=== PATIENT | female | born 1945 ===

== ENCOUNTER 2017-02-24 08:01 | Day surgery (SDC) | payer MEDICAID ==
[2017-02-24] MEDS ORDERED: Propofol 10 mg/ml Inj (20 ML) ONE (09:14)
[2017-02-24] MEDS ORDERED: Sodium Chloride 0.9% 1,000 ML IV SCH (09:45)
[2017-02-24 10:12] VITALS: PULSE 68
[2017-02-24 10:51] VITALS: BP 134/91; RESP 16; TEMP 97.8; O2SAT 97
== END 2017-02-24 11:06 | disposition home or self-care (01) ==
LOC: ENDO 08:01
PROVIDERS: ATTEND Internal Medicine
DX: D17.5 Benign lipomatous neoplasm of intra-abdominal organs (principal); K64.4 Residual hemorrhoidal skin tags; K64.8 Other hemorrhoids; K62.5 Hemorrhage of anus and rectum; K59.04 Chronic idiopathic constipation
CPT/HCPCS: 45378; J2001; J2704; J7040 ×2

== ENCOUNTER 2017-12-22 06:45 | Day surgery (SDC) | payer MEDICAID ==
[2017-12-18 10:31] VITALS: BMI 31.1
--- NOTE | 2017-12-20 00:51 | HP ---
REASON FOR ADMISSION: Left heart cath, possible angioplasty, abnormal stress test. BRIEF CLINICAL HISTORY: This is a 72-year-old female with a past medical history significant for hypertension, hypothyroidism, both knee arthritis, complaining of chest pain, dyspnea on exertion, who underwent a stress test that was abnormal; so, the patient is scheduled for elective cardiac cath, possible angioplasty. PAST MEDICAL HISTORY: Significant for hypertension, hyperlipidemia, arthritis of both knee. SOCIAL HISTORY: Denies any history of alcohol abuse. CURRENT MEDICATIONS: Patient is taking at home, hydrochlorothiazide 12.5 mg daily, sertraline, Zoloft 50 mg daily, Voltaren 100 mg p.o. b.i.d., cyanocobalamin B12 1000 mcg daily, aspirin 81 mg daily, metoprolol succinate 25 mg daily, levothyroxine 50 mcg daily, Celebrex, calcium, atorvastatin 10 mg daily, multivitamin 1 tablet daily, Odell-3 500 p.o. daily, oxybutynin 5 mg daily, phenazopyridine 100 mg p.o. t.i.d. ALLERGIES: NO KNOWN DRUG ALLERGIES. PREVIOUS CARDIAC WORKUP: As follows: The patient had echocardiography on 11/17/2017 that showed ejection fraction of 65%, mild to moderate mitral regurgitation, trace tricuspid regurgitation, RV systolic pressure of 16. The patient had a stress test that is IV Lexiscan and also myocardial perfusion that showed partially reversible distal anterior apical defect suspicious for ischemia. Ejection fraction reported 69%, dated 11/28/2017. REVIEW OF SYSTEMS: As per HPI. PHYSICAL EXAMINATION: As follows: VITAL SIGNS: Height of the patient is 5 feet 2 inches, weight of the patient is 170 pounds, body mass index 31.1 kg/m2. Rest of the examination as follows: Heart rate 70, blood pressure 130/70. HEENT: PERRLA intact. NECK: Supple. No carotid bruit or thyromegaly. CHEST: Clear to auscultation. HEART: S1 and S2 regular. ABDOMEN: Soft. EXTREMITIES: Clubbing and cyanosis negative. IMPRESSION: Morbidly obese female with hypertension, hyperlipidemia, hypothyroidism, bilateral knee arthritis, complaining of dyspnea on exertion, chest pain on exertion. Abnormal stress test, suspicious of distal anterior and apical ischemia, ejection fraction 69%, dated 11/28/2017. The patient had an echocardiogram with ejection fraction 65%, mild to moderate mitral regurgitation, trace tricuspid regurgitation, RV systolic pressure 16. RECOMMENDATIONS: We will do the cardiac catheterization. Further recommendation after cardiac catheterization. Risks, benefits, and alternatives were discussed with the patient, the patient agreed. We will proceed for cardiac catheterization; probably we will do the left radial approach. Thank you Dr. Oquendo for providing us the opportunity in taking care of the patient, Enoch Coleman. I spoke to the daughter, Gita, (telephone #[phone]) also, and explained the patient's condition. Gita, the daughter, is completely aware of and agree with the risks, benefits and alternatives and explained to patient. They agreed. We will proceed for cardiac catheterization. Bg Wesley MD cc: Azra Leonardo MD.
[2017-12-22 07:44] LABS: BASO # 0.02 K/mm3 (0.0-2.0); BASO % 0.4 % (0.0-3.0); EOS # 0.1 (0.0-0.7); EOS % 2.7 % (1.5-5.0); GRAN # 2.52 (1.4-6.5); HEMOGLOBIN 13.3 g/dL (12.0-16.0); LYMPH # 2.1 (1.2-3.4); LYMPH % 40.1 % (22.0-35.0); MEAN CELL VOLUME 86.3 fl (80.0-105.0); MEAN CORPUSCULAR HEMOGLOBIN 28.5 pg (25.0-35.0); MEAN CORPUSCULAR HGB CONC 33.1 g/dl (31.0-37.0); MEAN PLATELET VOLUME 11.8 fl (7.0-11.0); MONO # 0.4 (0.1-0.6); MONO % 7.8 % (1.0-6.0); RBC 4.66 10^6/uL (3.5-6.1); RED CELL DISTRIBUTION WIDTH 14.7 % (11.5-14.5); WHITE BLOOD COUNT 5.1 10^3/ul (4.5-11.0)
[2017-12-22 07:54] LABS: INR 1.07 (0.93-1.08); PROTHROMBIN TIME 12.3 SECONDS (9.4-12.5)
[2017-12-22 08:10] LABS: BLOOD UREA NITROGEN 16 mg/dL (7-21); CALCIUM 10.1 mg/dL (8.4-10.5); GFR AFRICAN-AMERICAN > 60; GFR NON-AFRICAN AMERICAN > 60; HDL CHOLESTEROL 60 mg/dL (29-60)
[2017-12-22 08:14] LABS: LDL CHOLESTEROL 84 mg/dL (0-129)
[2017-12-22] MEDS ORDERED: Lidocaine 2% Inj (20ml) ONE (08:19)
[2017-12-22] MEDS ORDERED: Iohexol 350mgl/ml 50 ML ONE (08:20)
[2017-12-22] MEDS ORDERED: Nitroglycerin 50mg in D5W 50 MG/250 ML BOTTLE IV ONE (08:20)
[2017-12-22] MEDS ORDERED: Iohexol 350 MG/100 ML VIAL ONE (08:20)
[2017-12-22] MEDS ORDERED: HEPARIN SODIUM/NS 2,000 ML IV ONE (08:20)
[2017-12-22] MEDS ORDERED: Phenylephrine 10 mg/ml Inj ONE (08:20)
[2017-12-22] MEDS ORDERED: Verapamil 2 ML ONE (08:20)
[2017-12-22] MEDS ORDERED: Midazolam 2 MG/2 ML VIAL ONE (08:26)
[2017-12-22] MEDS ORDERED: Bacitracin 500 Units/gm Oint Foilpak UD TOP ONE (09:27)
[2017-12-22] MEDS ORDERED: Sodium Chloride 0.9% 1,000 ML IV SCH (09:30)
[2017-12-22 09:46] VITALS: TEMP 97.7
[2017-12-22 10:38] VITALS: RESP 18
[2017-12-22] MEDS ORDERED: Bacitracin 500 Units/gm Oint Foilpak UD ONE (12:36)
[2017-12-22 14:30] VITALS: BP 127/74; PULSE 67; O2SAT 98
--- NOTE | 2017-12-22 17:16 | CARD ---
APPROVED REPORT Procedure(s) performed: Left Heart Catheterization HISTORY The patient is a 72 year-old female with a history of : most recent EF: 69%. (EF Method: RADIONUCLIDE), hypertension , dyslipidemia , Abnormal Stress test Anterior and apical Ischemia. INDICATION The indication(s) include : positive stress test, chest pain, dyspnea. CASE TECHNIQUE The patient was brought electively to the Cardiac Catheterization Laboratory in a fasting state and was prepped and draped in a sterile manner. The left wrist was infiltrated with 2% Lidocaine subcutaneous anesthesia. A 6FR GLIDESiPAYstTH ACCESS KIT sheath was inserted into the left radial artery without difficulty. Coronary angiography was performed using coronary diagnostic catheters. The left coronary system was accessed and visualized with a Diagnostic ,6 Fr JL 3.5 catheter. The right coronary system was accessed and visualized with a Diagnostic ,6 Fr Performa JR 4 catheter. The left ventricle was accessed and visualized with a 6 Fr Pigtail catheter. Left ventricular/Aortic Valve gradient assessed on pullback. Left ventriculogram was performed in ANTHONY projection. Closure device was deployed with a Fr TR Band (Regular) without any complications. The patient tolerated the procedure well and there were no complications associated with the procedure. Vessel Analysis The patient's coronary anatomy is right dominant. The left main coronary artery is a medium size vessel with diffuse calcification noted throughout this vessel and without significant stenosis. The left main bifurcates to the left anterior descending and circumflex. The left anterior descending artery is a medium size vessel with diffuse calcification noted throughout this vessel and without significant stenosis. There is a 40-50% stenosis in the mid segment. The first diagonal branch is a small size vessel with diffuse calcification noted throughout this vessel and without significant stenosis. The circumflex artery is a medium size vessel with diffuse calcification noted throughout this vessel and without significant stenosis. There is a 60% stenosis in the mid segment. The first obtuse marginal branch is a large size vessel with diffuse calcification noted throughout this vessel and without significant stenosis. There is a 50% stenosis in the proximal segment. The right coronary artery is a large size vessel with diffuse calcification noted throughout this vessel and without significant stenosis. There is a 40% stenosis in the distal segment. The right posterior descending artery is a medium size vessel . The right posterolateral branch is a small size vessel with diffuse calcification noted throughout this vessel and without significant stenosis. Left Ventricle The left ventricle is normal in size with normal contractility. There was no cardiomyopathy. The left ventricular ejection fraction is estimated to be 60-65%. The left ventricular end diastolic pressure is 20-25 mmHg. 5 mm gradient across aortic Valve noted. Conclusion Non Obstructive CAD, limited to Mid Cx-60% Moderate Atherosclerotic [place] noted in Coronary trees Preserved LV FX-EF-60-65%, EDP-20-25 mmof hg. Recommendations Aggressive Medical TherapyCardiac Risk Reduction Program Add Low dose diuretic in current regimen. CC; DRs. Azra Leonardo MD/ Víctor Blackmon MD
--- NOTE | 2017-12-22 21:33 | CARD ---
APPROVED REPORT EKG Measurement Heart [id number] <Conclusion> Normal sinus rhythm Left axis deviation Right bundle branch block Abnormal ECG
== END 2017-12-22 14:20 | disposition home or self-care (01) ==
LOC: CATH 06:45
PROVIDERS: ATTEND Internal Medicine Cardiovascular Disease
DX: I25.10 Atherosclerotic heart disease of native coronary artery without angina pectoris (principal); I10 Essential (primary) hypertension; E78.5 Hyperlipidemia, unspecified; E03.9 Hypothyroidism, unspecified; I34.0 Nonrheumatic mitral (valve) insufficiency; E66.01 Morbid (severe) obesity due to excess calories; Z68.31 Body mass index [BMI] 31.0-31.9, adult
CPT/HCPCS: 36415; 80048; 80061; 85025; 85610; 85730; 86850; 86900; 93005; 93458; 99152; 99153; C1769; C1887; J1644 ×2; J1940; J2250; J3010; J7040 ×2; Q9967